=== PATIENT | male | born 1950 | race African-American/Black ===

== ENCOUNTER 2019-01-19 08:32 | Emergency (ER) | payer OTHER ==
[~2019-01-19] VITALS: Ht 180.3 cm; Wt 85.7 kg
[2019-01-19] MEDS ORDERED: cloNIDine HCL 0.1 MG TAB ONE (08:41)
[2019-01-19] MEDS ORDERED: cloNIDine HCL 0.1 MG TAB PO ONE ×2 (08:45→13:30)
[2019-01-19 10:49] LABS: Basophils # (auto) 0 uL; Eosinophils # (auto) 0.1 uL; Eosinophils % (auto) 1.9 % (0.0-7.0); Hematocrit 41.3 % (41.0-53.0); Hemoglobin 13.8 g/dL (13.5-17.5); Lymphocytes # (auto) 1.1 uL; Mean Corpuscular Hemoglobin 31.4 pg (28.0-32.0); Mean Corpuscular Hgb Conc. 33.5 g/dL (32.0-36.0); Mean Corpuscular Volume 93.7 fL (80.0-100.0); Monocytes # (auto) 0.4 uL; Monocytes % (auto) 12.5 % (0.0-12.0); Neutrophils # (auto) 1.9 uL; Neutrophils % (auto) 53.6 % (37.0-80.0); Nucleated Red Blood Cells % 0.1 %; Platelet Count (auto) 239 10^3/uL (140-450); Red Cell Distribution Width 13.9 % (11.8-14.3); White Blood Cell 3.6 10^3/uL (4.4-10.8)
[2019-01-19 11:51] LABS: Calcium 8.4 mg/dL (8.5-10.1); Chloride 107 mmol/L (98-107); Potassium 3.4 mmol/L (3.5-5.1); Sodium 142 mmol/L (136-145)
[2019-01-19 11:59] LABS: Alanine Aminotransferase 26 U/L (16-61); Albumin 3.6 g/dL (3.4-5.0); Anion Gap 6 (5-15); Blood Urea Nitrogen 11 mg/dL (7-18); Carbon Dioxide 29 mmol/L (21-32); Glucose 129 mg/dL (74-106)
[2019-01-19 12:29] LABS: Alkaline Phosphatase 68 U/L (45-117); Aspartate Aminotransferase 20 U/L (15-37); BUN/Creatinine Ratio 9.4; Bilirubin, Total 0.5 mg/dL (0.2-1.0); GFR African American 79 mL/min; GFR Non-African American 66 mL/min; Magnesium 2.5 mg/dL (1.6-2.6)
[2019-01-19] MEDS ORDERED: POTASSIUM EFFERVESENT TAB 25 MEQ PO ONE (12:30)
[2019-01-19] MEDS ORDERED: POTASSIUM EFFERVESENT TAB 25 MEQ ONE (12:53)
[2019-01-19 13:01] LABS: Total Protein 6.9 g/dL (6.4-8.2)
[2019-01-19 18:27] VITALS: BP 153/103
== END 2019-01-19 18:40 | disposition short-term general hospital (02) ==
LOC: ER 08:39
DX: I10 Essential (primary) hypertension (principal); E87.6 Hypokalemia; R42 Dizziness and giddiness; R51 Headache
CPT/HCPCS: 36415; 71046; 80053; 83735; 83880; 84484; 85025; 93005